=== PATIENT | male | born 1965 | race Caucasian/White ===

== ENCOUNTER → 2021-03-09 | Outpatient (CLI) | payer OTHER ==
--- NOTE | 2021-03-09 14:38 | RAD ---
EXAM: Bilateral knees, standing view; right knee, 2 views. HISTORY: Pain. COMPARISON: None. FINDINGS: A standing view both knees and 2 views the right knee are obtained. There is no fracture, d islocation or subluxation. There is no joint effusion. IMPRESSION: No acute osseous finding. Electronically signed by: Gilda Madrigal MD (03/09/2021 2:36 PM) [id number]
== END ==
LOC: RAD 13:52
PROVIDERS: ATTEND Physician Assistant
DX: M25.561 Pain in right knee (principal)
CPT/HCPCS: 73560; 73565